=== PATIENT | female | born 1980 | race African-American/Black ===

== ENCOUNTER 2016-09-10 02:40 | Emergency (ER) | payer OTHER ==
[2016-09-10 03:18] LABS: ALT (SGPT) 9 U/L (0-55); AST (SGOT) 16 U/L (5-34); Alkaline Phosphatase 57 U/L (40-150); Anion Gap 13 mmol/L (10-20); BUN (Urea Nitrogen) 10 mg/dL (7.0-18.7); Bilirubin, Total 0.8 mg/dL (0.2-1.2); Calc. Creatinine Clearance 0 mL/min (70-130); Calcium 9.2 mg/dL (7.8-10.44); Carbon Dioxide 22 mmol/L (22-29); Chloride 106 mmol/L (98-107); Estimated GFR-MDRD Greater than 90; Globulin 3.2 g/dL (2.4-3.5); Protein, Total 7.3 g/dL (6.0-8.3)
[2016-09-10] MEDS ORDERED: Ketorolac Tromethamine 60 MG/2 ML VIAL ONE (03:32)
== END 2016-09-10 03:53 | disposition home or self-care (01) ==
LOC: NAV ERS 02:40
DX: S83.8X1A Sprain of other specified parts of right knee, initial encounter (principal); I10 Essential (primary) hypertension; X58.XXXA Exposure to other specified factors, initial encounter
CPT/HCPCS: 80053; 84550; 96372; J1885

== ENCOUNTER 2017-03-20 23:02 | Emergency (ER) | payer SELFPAY ==
[2017-03-20] MEDS ORDERED: Atenolol 25 MG TAB ONE (23:13)
[2017-03-20] MEDS ORDERED: Ketorolac Tromethamine 60 MG/2 ML VIAL ONE (23:13)
== END 2017-03-20 23:41 | disposition home or self-care (01) ==
LOC: NAV ERS 23:02
DX: I10 Essential (primary) hypertension (principal); Z79.899 Other long term (current) drug therapy
CPT/HCPCS: 96372; J1885

== ENCOUNTER 2021-12-14 22:10 | Emergency (ER) | payer OTHER, BC ==
[2021-12-14] MEDS ORDERED: Ketorolac Tromethamine 60 MG/2 ML VIAL ONE (22:44)
== END 2021-12-14 23:00 | disposition home or self-care (01) ==
LOC: NAV ERS 22:10
DX: S43.401A Unspecified sprain of right shoulder joint, initial encounter (principal); I10 Essential (primary) hypertension; X50.0XXA Overexertion from strenuous movement or load, initial encounter; Y93.F2 Activity, caregiving, lifting; Y92.69 Other specified industrial and construction area as the place of occurrence of the external cause; Z79.899 Other long term (current) drug therapy
CPT/HCPCS: 96372; 99283; J1885

== ENCOUNTER 2022-01-30 00:15 | Emergency (ER) | payer BC ==
[2022-01-30] MEDS ORDERED: Ketorolac Tromethamine 60 MG/2 ML VIAL ONE (00:55)
[2022-01-30] MEDS ORDERED: diphenhydrAMINE 25 MG CAP ONE (00:55)
[2022-01-30] MEDS ORDERED: Ondansetron ODT 4 MG TAB ONE (00:58)
== END 2022-01-30 01:25 | disposition home or self-care (01) ==
LOC: NAV ERS 00:15
DX: R51.9 Headache, unspecified (principal); I10 Essential (primary) hypertension; Z79.899 Other long term (current) drug therapy
CPT/HCPCS: 96372; 99283; J1885; Q0162

== ENCOUNTER 2022-05-01 09:41 | Emergency (ER) | payer OTHER, BC ==
[2022-05-01] MEDS ORDERED: Ibuprofen 800 MG TAB ONE (10:02)
== END 2022-05-01 10:53 | disposition home or self-care (01) ==
LOC: NAV ERS 09:41
DX: S13.9XXA Sprain of joints and ligaments of unspecified parts of neck, initial encounter (principal); S23.3XXA Sprain of ligaments of thoracic spine, initial encounter; I10 Essential (primary) hypertension; G43.909 Migraine, unspecified, not intractable, without status migrainosus; V49.19XA Passenger injured in collision with other motor vehicles in nontraffic accident, initial encounter
CPT/HCPCS: 72040; 72072

== ENCOUNTER 2022-05-02 15:55 | Emergency (ER) | payer BC ==
[2022-05-02] MEDS ORDERED: Ketorolac Tromethamine 60 MG/2 ML VIAL ONE (16:59)
[2022-05-02] MEDS ORDERED: Metoclopramide HCl 10 MG/2 ML VIAL ONE (16:59)
[2022-05-02] MEDS ORDERED: Sodium Chloride 0.9% 1,000 ML ONE (16:59)
[2022-05-02] MEDS ORDERED: Ketorolac Tromethamine 30 MG/ML VIAL ONE (16:59)
[2022-05-02] MEDS ORDERED: diphenhydrAMINE 50 MG/ML VIAL ONE (16:59)
[2022-05-02] MEDS ORDERED: Sodium Chloride 0.9% 100 ML ONE (17:06)
== END 2022-05-02 18:10 | disposition home or self-care (01) ==
LOC: NAV ERS 15:55
DX: S13.9XXA Sprain of joints and ligaments of unspecified parts of neck, initial encounter (principal); R51.9 Headache, unspecified; I10 Essential (primary) hypertension; Z79.899 Other long term (current) drug therapy; X58.XXXA Exposure to other specified factors, initial encounter
CPT/HCPCS: 96374; 96375; J1200; J1885; J2765; J7050

== ENCOUNTER 2023-06-12 20:46 | Emergency (ER) | payer BC, SELFPAY ==
[2023-06-12] MEDS ORDERED: Metoclopramide HCl 10 MG/2 ML VIAL ONE (21:33)
[2023-06-12] MEDS ORDERED: diphenhydrAMINE 50 MG/ML VIAL ONE ×2 (21:33→21:35)
[2023-06-12] MEDS ORDERED: Sodium Chloride 0.9% 1,000 ML ONE (21:33)
== END 2023-06-12 23:05 | disposition home or self-care (01) ==
LOC: NAV ERS 20:46
DX: G43.909 Migraine, unspecified, not intractable, without status migrainosus (principal); I10 Essential (primary) hypertension; Z79.899 Other long term (current) drug therapy
CPT/HCPCS: 96374; 96375; J1200; J2765; J7050

== ENCOUNTER 2024-01-05 21:13 | Emergency (ER) | payer SELFPAY | END 2024-01-05 21:21 | disposition left against medical advice (07) | LOC: NAV ERS 21:13 | DX: Z53.21 Procedure and treatment not carried out due to patient leaving prior to being seen by health care provider (principal) ==